=== PATIENT | male | born 1950 | race Caucasian/White ===

== ENCOUNTER 2017-09-23 21:44 | Emergency (ER) | payer MEDICARE, BC ==
[2017-09-23 21:49] VITALS: BP 123/67; PULSE 105; RESP 20; O2SAT 97
[2017-09-23 22:10] LABS: BASOPHILS % (AUTO) 1 % (0-3); EOSINOPHILS % (AUTO) 0 % (0-9); HEMATOCRIT 39 % (39-53); MEAN CORPUSCULAR HGB CONC 34.6 gm/dl (32.0-36.0); MEAN CORPUSCULAR VOLUME 86 fL (80-100); MONOCYTES % (AUTO) 1.7 % (0-12); NEUTROPHILS % (AUTO) 78.9 % (37-80)
[2017-09-23 22:12] LABS: APPEARANCE,URINE Clear; BILIRUBIN,URINE NEGATIVE (NEGATIVE); COLOR,URINE Light yellow; GLUCOSE, URINE (UA) NEGATIVE (NEGATIVE); KETONES,URINE NEGATIVE (NEGATIVE); LEUKOCYTE ESTERASE ,URINE TRACE (NEGATIVE); NITRATE,URINE NEGATIVE (NEGATIVE); OCCULT BLOOD,URINE 2+ (NEG-TRACE); PH,URINE 7.5; UROBILINOGEN,URINE 0.2 (0.2-1.0 EU)
[2017-09-23 22:18] VITALS: TEMP 99.4
[2017-09-23 22:24] LABS: ALBUMIN 3.3 gm/dl (3.4-5.0); CALCIUM 8.1 mg/dl (8.5-10.1)
[2017-09-23 22:37] LABS: WBC,URINE 0-2 (0-5AV/HPF)
== END 2017-09-23 23:48 | disposition home or self-care (01) | DRG 866 ==
LOC: ED 21:44
DX: B34.9 Viral infection, unspecified (principal)
CPT/HCPCS: 36415; 71046; 80053; 81001; 85025; 87088; 87804; 99282

== ENCOUNTER 2018-09-10 18:21 | Inpatient (IN) | payer MEDICARE, OTHER ==
[~2018-09-10 18:21] MED LIST: WARFARIN SODIUM 2.5 MG TAB PO SCH
[2018-09-10] MEDS ORDERED: NITROGLYCERIN 0.4 MG TAB SL PRN (18:27)
[2018-09-10] MEDS ORDERED: ASPIRIN 81 MG CHEWABLE CTB PO STA (18:27)
[2018-09-10] MEDS ORDERED: ASPIRIN 81 MG CHEWABLE CTB ONE (18:30)
[2018-09-10] MEDS ORDERED: SODIUM CHLORIDE 0.9% 1000ML 1,000 ML IV ONE (18:49)
[2018-09-10 18:50] LABS: HEMATOCRIT 38 % (39-53); HEMOGLOBIN 12.2 gm/dl (13.5-17.7); MEAN CORPUSCULAR HEMOGLOBIN 27.3 pg (27.0-32.0); MEAN CORPUSCULAR HGB CONC 32.2 gm/dl (32.0-36.0); MEAN CORPUSCULAR VOLUME 85 fL (80-100)
[2018-09-10 18:54] LABS: CALCIUM 8.9 mg/dl (8.5-10.1); CARBON DIOXIDE 23.5 mEq/L (21-32); CREATININE 1.06 mg/dl (0.80-1.30); POTASSIUM 4.5 mMol/L (3.5-5.1); TROP I 0.094 ng/ml (0.000-0.056)
[2018-09-10 19:24] LABS: BAND NEUTROPHILS % (MANUAL) 6 %; BASOPHILS % (MANUAL) 0 % (0-3); EOSINOPHILS % (MANUAL) 0 % (0-9); LYMPHOCYTES % (MANUAL) 29 % (10-50); MONOCYTES % (MANUAL) 2 % (0-12); NEUTROPHILS % (MANUAL) 63 % (37-80); PLATELET MORPHOLOGY COMMENT ADEQUATE
[2018-09-10 19:25] LABS: NORMAL RBCS NORMAL RBCS
[2018-09-10] MEDS ORDERED: ENOXAPARIN 80 MG SOL SC ONE (19:56)
[2018-09-10] MEDS: ENOXAPARIN 80 MG SOL SC SCH (20:00)
[2018-09-10] MEDS: TAMSULOSIN HYDROCHLORIDE 0.4 MG CAP PO SCH (21:57)
[2018-09-11] MEDS: SODIUM CHLORIDE 0.9% FLUSH 10 ML SOL IV PRN ×3 (00:12→22:58)
[2018-09-11 07:13] LABS: BASOPHILS % (AUTO) 1 % (0-3); EOSINOPHILS % (AUTO) 0 % (0-9); HEMATOCRIT 33 % (39-53); HEMOGLOBIN 11.1 gm/dl (13.5-17.7); LYMPHOCYTES % (AUTO) 42.1 % (10-50); MEAN CORPUSCULAR HEMOGLOBIN 28.1 pg (27.0-32.0); MEAN CORPUSCULAR HGB CONC 33.5 gm/dl (32.0-36.0); MEAN CORPUSCULAR VOLUME 84 fL (80-100); MONOCYTES % (AUTO) 3.5 % (0-12); NEUTROPHILS % (AUTO) 53.2 % (37-80)
[2018-09-11 07:24] LABS: CALCIUM 8.1 mg/dl (8.5-10.1); CARBON DIOXIDE 23.6 mEq/L (21-32); CREATININE 0.76 mg/dl (0.80-1.30); POTASSIUM 4.3 mMol/L (3.5-5.1); TROP I 0.912 ng/ml (0.000-0.056)
[2018-09-11] MEDS: ENOXAPARIN 80 MG SOL SC SCH ×2 (07:54→20:25)
[2018-09-11] MEDS ORDERED: MELATONIN PO SCH (09:00)
[2018-09-11] MEDS ORDERED: [UNRECOGNIZED DRUG - OTHER] PO SCH (09:00)
[2018-09-11] MEDS ORDERED: PYRIDOXINE HCL PO SCH (09:00)
[2018-09-11] MEDS: SODIUM CHLORIDE 0.9% FLUSH 10 ML SOL IV SCH ×2 (15:40→22:58)
[2018-09-11] MEDS: TAMSULOSIN HYDROCHLORIDE 0.4 MG CAP PO SCH (20:20)
[2018-09-11] MEDS: OXYBUTYNIN 5 MG PO SCH (20:20)
[2018-09-12] MEDS: SODIUM CHLORIDE 0.9% FLUSH 10 ML SOL IV SCH ×3 (01:08→18:24)
[2018-09-12 07:18] LABS: HEMATOCRIT 34 % (39-53); HEMOGLOBIN 11.1 gm/dl (13.5-17.7); MEAN CORPUSCULAR HEMOGLOBIN 27.7 pg (27.0-32.0); MEAN CORPUSCULAR HGB CONC 32.9 gm/dl (32.0-36.0); MEAN CORPUSCULAR VOLUME 84 fL (80-100)
[2018-09-12 07:23] LABS: CARBON DIOXIDE 25.2 mEq/L (21-32); CREATININE 0.84 mg/dl (0.80-1.30); POTASSIUM 4.3 mMol/L (3.5-5.1)
[2018-09-12] MEDS: ENOXAPARIN 80 MG SOL SC SCH (08:11)
[2018-09-12 08:17] LABS: BAND NEUTROPHILS % (MANUAL) 6 %; BASOPHILS % (MANUAL) 0 % (0-3); EOSINOPHILS % (MANUAL) 0 % (0-9); LYMPHOCYTES % (MANUAL) 54 % (10-50); MONOCYTES % (MANUAL) 4 % (0-12); NEUTROPHILS % (MANUAL) 36 % (37-80); NORMAL RBCS PRESENT
[2018-09-12] MEDS: RIVAROXABAN 10 MG TAB PO SCH (20:13)
[2018-09-12] MEDS: OXYBUTYNIN 5 MG PO SCH (21:11)
[2018-09-12] MEDS: TAMSULOSIN HYDROCHLORIDE 0.4 MG CAP PO SCH (21:11)
[2018-09-13] MEDS: SODIUM CHLORIDE 0.9% FLUSH 10 ML SOL IV SCH ×2 (00:46→10:18)
[2018-09-13] MEDS: RIVAROXABAN 10 MG TAB PO SCH (08:39)
[2018-09-13 10:08] VITALS: BP 112/76; PULSE 95; RESP 16; TEMP 98.1; O2SAT 95
== END 2018-09-13 11:20 | disposition home or self-care (01) | DRG 176 ==
LOC: ED 18:21 → UNDOADMIN 20:08 → ACUTE CARE 20:08
PROVIDERS: ADMIT Family Medicine; ATTEND Family Medicine
PROC: F01ZBZZ Bed Mobility Assessment (ICD-10-PCS; principal; 2018-09-12)
PROC: F01ZCZZ Transfer Assessment (ICD-10-PCS; 2018-09-12)
PROC: F02Z0ZZ Bathing/Showering Assessment (ICD-10-PCS; 2018-09-12)
PROC: F02Z3ZZ Grooming/Personal Hygiene Assessment (ICD-10-PCS; 2018-09-12)
DX: I26.99 Other pulmonary embolism without acute cor pulmonale (principal); R06.02 Shortness of breath; R79.89 Other specified abnormal findings of blood chemistry; I51.89 Other ill-defined heart diseases; C61 Malignant neoplasm of prostate
CPT/HCPCS: 36415; 71045; 71275; 80048; 82550; 83880; 84484; 85007; 85025; 85027; 85378; 85610; 93005; 93012; 93306; 94150; 94762; 96365; 96374; 99223; 99285; J1650; Q9967; A9270-GY

== ENCOUNTER 2019-02-14 06:41 | Emergency (ER) | payer MEDICARE, OTHER ==
[2019-02-14 06:45] VITALS: O2SAT 97
[2019-02-14 07:20] LABS: LACTIC ACID 1.6 mMol/L (0.0-2.0)
[2019-02-14 07:36] LABS: ALBUMIN 3.2 gm/dl (3.4-5.0); BILIRUBIN,TOTAL 0.5 mg/dl (0.2-1.0); CALCIUM 8.2 mg/dl (8.5-10.1); CARBON DIOXIDE 27.6 mEq/L (21-32); CREATININE 1.08 mg/dl (0.80-1.30); TOTAL PROTEIN 6.9 gm/dl (6.4-8.2)
[2019-02-14 07:52] LABS: HEMATOCRIT 35 % (39-53); MEAN CORPUSCULAR HEMOGLOBIN 28.5 pg (27.0-32.0); MEAN CORPUSCULAR HGB CONC 31.5 gm/dl (32.0-36.0); MEAN CORPUSCULAR VOLUME 90 fL (80-100)
[2019-02-14 08:23] LABS: BAND NEUTROPHILS % (MANUAL) 10 %; BASOPHILS % (MANUAL) 0 % (0-3); EOSINOPHILS % (MANUAL) 4 % (0-9); LYMPHOCYTES % (MANUAL) 10 % (10-50); METAMYELOCYTES%(MANUAL) 2; MONOCYTES % (MANUAL) 4 % (0-12); NEUTROPHILS % (MANUAL) 70 % (37-80); NORMAL RBCS PRESENT
[2019-02-14 10:06] VITALS: BP 106/66; PULSE 88; RESP 20; TEMP 99.1
== END 2019-02-14 09:25 | disposition home or self-care (01) | DRG 810 ==
LOC: ED 06:41
DX: D70.9 Neutropenia, unspecified (principal); R50.81 Fever presenting with conditions classified elsewhere; C61 Malignant neoplasm of prostate
CPT/HCPCS: 36415; 71045; 80053; 83605; 85007; 85027; 87040; 99283

== ENCOUNTER 2019-02-17 11:53 | Emergency (ER) | payer MEDICARE, OTHER ==
[2019-02-17 12:07] VITALS: RESP 20
[2019-02-17] MEDS ORDERED: CEFEPIME HYDROCHLORIDE 2 GM in SODIUM CHLORIDE 0.9% 100 ML 100 ML IV SCH (14:00)
[2019-02-17] MEDS ORDERED: ACETAMINOPHEN 325 MG PO ONE (14:02)
[2019-02-17 14:03] LABS: HEMATOCRIT 29 % (39-53); HEMOGLOBIN 9.6 gm/dl (13.5-17.7); MEAN CORPUSCULAR HEMOGLOBIN 28.7 pg (27.0-32.0); MEAN CORPUSCULAR HGB CONC 32.5 gm/dl (32.0-36.0); MEAN CORPUSCULAR VOLUME 88 fL (80-100)
[2019-02-17] MEDS ORDERED: ACETAMINOPHEN 500 MG 500 MG TAB ONE (14:03)
[2019-02-17] MEDS ORDERED: LEVOFLOXACIN 25 MG/ML 750 MG in SODIUM CHLORIDE 0.9% 250 ML 150 ML IV ONE (14:07)
[2019-02-17] MEDS ORDERED: LEVOFLOXACIN 25 MG/ML SOL IV ONE (14:08)
[2019-02-17 14:12] LABS: APPEARANCE,URINE Clear; BILIRUBIN,URINE NEGATIVE (NEGATIVE); COLOR,URINE Yellow; GLUCOSE, URINE (UA) NEGATIVE (NEGATIVE); KETONES,URINE NEGATIVE (NEGATIVE); LEUKOCYTE ESTERASE ,URINE NEGATIVE (NEGATIVE); NITRATE,URINE NEGATIVE (NEGATIVE); OCCULT BLOOD,URINE NEGATIVE (NEG-TRACE); PH,URINE 8.5; UROBILINOGEN,URINE 0.2 (0.2-1.0 EU)
[2019-02-17 14:15] LABS: ALBUMIN 2.8 gm/dl (3.4-5.0); BILIRUBIN,DIRECT 0.1 mg/dl (0.0-0.2); BILIRUBIN,TOTAL 0.4 mg/dl (0.2-1.0); CARBON DIOXIDE 21.7 mEq/L (21-32); CREATININE 1.26 mg/dl (0.80-1.30); TOTAL PROTEIN 6.1 gm/dl (6.4-8.2)
[2019-02-17 14:24] LABS: BACTERIA TRACE (< 1+); CRYSTALS NEGATIVE (0-3 AVE/HPF); EPITHELIAL CELLS NEGATIVE (SQUAMOUS); RBC,URINE 0-1 (0-3AV/HPF); WBC,URINE 0-1 (0-5AV/HPF)
[2019-02-17 14:36] LABS: BAND NEUTROPHILS % (MANUAL) 22 %; BASOPHILS % (MANUAL) 0 % (0-3); EOSINOPHILS % (MANUAL) 0 % (0-9); LACTIC ACID 1.8 mMol/L (0.0-2.0); LYMPHOCYTES % (MANUAL) 22 % (10-50); MONOCYTES % (MANUAL) 4 % (0-12); NEUTROPHILS % (MANUAL) 52 % (37-80)
[2019-02-17 14:37] LABS: ANISOCYTOSIS SLIGHT AMT
[2019-02-17] MEDS ORDERED: SODIUM CHLORIDE 0.9% 500 ML 500 ML IV SCH (14:45)
[2019-02-17 15:26] VITALS: TEMP 101.7
[2019-02-17 15:29] VITALS: BP 92/55; PULSE 86; O2SAT 98
== END 2019-02-17 15:30 | disposition short-term general hospital (02) | DRG 809 ==
LOC: ED 11:53
DX: D70.9 Neutropenia, unspecified (principal); R17 Unspecified jaundice; R50.81 Fever presenting with conditions classified elsewhere; R06.02 Shortness of breath; Z85.46 Personal history of malignant neoplasm of prostate
CPT/HCPCS: 36415; 70450; 71260; 74177; 80048; 80076; 81001; 83605; 85007; 85027; 87040; 96365; 99284; 99285; J1956; Q9967